=== PATIENT | male | born 1990 ===

== ENCOUNTER 2021-09-03 08:49 | Emergency (ER) | payer SELFPAY ==
[~2021-09-03] VITALS: Ht 177.8 cm; Wt 136.4 kg
[2021-09-03 08:56] VITALS: TEMP 97.6
[2021-09-03 09:32] LABS: BASO % 0.3 % (0.0-2.0); EOS # 0.1 K/mm3 (0.0-0.7); EOS % 1.2 % (0-4.0); GRAN # 7.4 K/mm3 (1.4-6.5); GRAN % 68.7 % (42.2-75.2); HEMATOCRIT 42.3 % (42.0-52.0); HEMOGLOBIN 14.3 g/dl (13.5-18.0); LYMPH # 2.2 K/mm3 (1.2-3.4); LYMPH % 20.3 % (20.0-51.0); MEAN CELL VOLUME 91 fl (80.0-100.0); MEAN CORPUSCULAR HEMOGLOBIN 31 pg (27.0-31.0); MEAN CORPUSCULAR HGB CONC 34 g/dl (33.0-37.0); MEAN PLATELET VOLUME 9.6 fl (7.4-10.4); PLATELET COUNT 311 K/mm3 (130-400); RED BLOOD COUNT 4.66 M/mm3 (4.20-5.60); REDCELL DISTRIBUTION WIDTH-CV 13.3 % (11.5-14.5)
[2021-09-03 09:47] LABS: ALBUMIN 4.2 gm/dL (3.5-5.0); BILIRUBIN,TOTAL 0.9 mg/dL (0.2-1.2); C-REACTIVE PROTEIN 1.1 mg/dL (0.00-0.50); CALCIUM 9.9 mg/dL (8.4-10.2); CREATININE, serum 0.85 mg/dL (0.72-1.25); POTASSIUM 3.5 mmol/L (3.5-4.5); TOTAL PROTEIN 8.2 gm/dL (6.2-8.1)
[2021-09-03 11:04] LABS: COLLECTION METHOD CLEAN CATCH
[2021-09-03 11:09] LABS: PH 6 (5-8); SQUAMOUS EPITHELIAL 0-2 /hpf (0-10); URINE APPEARANCE Clear (CLEAR/HAZY); URINE BACTERIA None Seen (NONE SEEN); URINE BILIRUBIN Negative (NEGATIVE); URINE BLOOD Negative (NEGATIVE); URINE COLOR Straw (YELLOW); URINE GLUCOSE Negative (NEGATIVE); URINE KETONE Negative (NEGATIVE); URINE LEUKOCYTE ESTERASE Negative (NEGATIVE); URINE NITRATE Negative (NEGATIVE); URINE PROTEIN(semi-quant) Negative (NEGATIVE); URINE RBC None Seen /hpf (0-2); URINE UROBILINOGEN Negative (NEGATIVE)
[2021-09-03 11:17] LABS: TRICYCLIC ANTIDEPRESS URINE NEGATIVE
[2021-09-03] MEDS ORDERED: ATIVAN 1MG T1 MG/TAB PO (11:18)
[2021-09-03 11:43] VITALS: BP 125/83; PULSE 79
== END 2021-09-03 11:54 | disposition home or self-care (01) ==
LOC: COL.ER 08:49
PROVIDERS: Family Medicine
DX: F10.239 Alcohol dependence with withdrawal, unspecified (principal); E86.0 Dehydration; F17.210 Nicotine dependence, cigarettes, uncomplicated; Y90.0 Blood alcohol level of less than 20 mg/100 ml
CPT/HCPCS: J2060; J2405; J7120